=== PATIENT | male | born 1940 | race Caucasian/White ===

== ENCOUNTER 2017-04-18 13:39 | Emergency (ER) | payer OTHER ==
[2017-04-18 13:49] VITALS: TEMP 97.7; O2SAT 93
[2017-04-18] MEDS ORDERED: LET GEL TOPICAL 1 EA SYR TP ONE (14:00)
--- NOTE | 2017-04-18 14:11 | EDPHY ---
H & P Smoking Status: Never smoked Time Seen by Provider: 04/18/17 13:57 HPI/ROS: CHIEF COMPLAINT: Right eyebrow laceration HISTORY OF PRESENT ILLNESS: 77-year-old male presents to the emergency department by private vehicle with a laceration to his right eyebrow. The patient states that he was at home and was using a sledgehammer to cut a piece of wood in half and the end of piece of wood came up and hit him in the right eyebrow. He did not lose consciousness. He has no headache. The incident happened about 2 hours prior to arrival. He states the laceration blood quite a bit and EMS advised that he go to the emergency department for the suture. He has no neck or back pain. No chest pain or difficulty breathing. He denies any presyncopal symptoms prior to the injury. Denies injury to upper lower extremities. Denies abdominal pain. No vomiting. REVIEW OF SYSTEMS: Constitutional: No fever, no chills. Eyes: No double or blurry vision. ENT: No sore throat. Respiratory: No cough, no shortness of breath. Cardiac: No chest pain. Gastrointestinal: No abdominal pain, vomiting or diarrhea. Genitourinary: No dysuria. Musculoskeletal: No neck or back pain. Skin: Eyebrow laceration. No rashes. Neurological: No headache. (Sherita Palma) Past Medical/Surgical History: COPD - oxygen at night, hypertension (Minerva,Sherita M) Social History: and lives in [place] (Minerva,Sherita M) Physical Exam: General Appearance: Alert, no distress. Mentating normally and answering questions appropriately. Eyes: Pupils equal and round. Extraocular motions are all intact. ENT: Mouth: Mucous membranes moist. Respiratory: No wheezing, rhonchi, or rales, lungs are clear to auscultation. Cardiovascular: Regular rate and rhythm. Gastrointestinal: Abdomen is soft and nontender, no masses, no rebound or guarding, bowel sounds normal. Neurological: Alert and oriented x 3, cranial nerves II through XII grossly intact Skin: 2.5 cm laceration to the right eyebrow. No active bleeding noted. Nontender to palpate over the superior or inferior orbital rims. Warm and dry, no rashes. Musculoskeletal: Nontender to palpate along the cervical, thoracic or lumbar spine. Neck is supple. Extremities: Full range of motion and no peripheral edema. Psychiatric: Patient is oriented X 3, there is no agitation. (Sherita Palma) Constitutional: Initial Vital Signs Temperature (C) 36.5 C 04/18/17 13:46 Heart Rate 85 04/18/17 13:46 Respiratory Rate 15 04/18/17 13:46 Blood Pressure 140/91 H 04/18/17 13:46 O2 Sat (%) 93 04/18/17 13:46 O2 Delivery Mode Room Air Allergies/Adverse Reactions: No Known Allergies Allergy (Unverified 10/31/11 15:01) Home Medications: Medication Instructions Recorded Allopurinol [Allopurinol 100 MG 0 mg PO 10/24/11 (*)] Furosemide [Lasix] 0 mg PO 10/24/11 Lisinopril [Zestril 2.5 mg (*)] 0 mg PO 10/24/11 POTASSIUM CHLORIDE [K-NATHALIE] 0 mg PO 10/24/11 Simvastatin [Zocor] 0 mg PO 10/24/11 Medical Decision Making Procedures: Laceration repair. Verbal consent was obtained from the patient. The 2.5 cm laceration on the right eyebrow was anesthetized using 1% lidocaine with epinephrine. The wound was irrigated with saline, draped and explored to its base with a gloved finger. There were no deep structures involved. The wound was repaired with 6 0 Prolene, 6 sutures. The wound repair was simple. The procedure was performed by myself. (Sherita Palma) ED Course/Re-evaluation: 77-year-old male presents to the emergency department with right eyebrow laceration. I discussed the pros and cons of CT imaging of his brain including radiation exposure the patient declined. I feel the patient has a capacity to make this decision. I encouraged him to return to the emergency department if he developed headache, vomiting, altered mental status, or if he felt worse in any way. He was comfortable with this plan. Patient's laceration was repaired. Patient was given closed-head injury precautions. (Sherita Palma) Differential Diagnosis: Head injury including but not limited to concussion, skull fracture, intraparenchymal contusion, subarachnoid, subdural and epidural hematoma. (Sherita Palma) Departure - Departure Disposition: Home, Routine, Self-Care Clinical Impression: Laceration of right eyebrow Qualifiers: Encounter type: initial encounter Qualified Code(s): S01.111A - Laceration without foreign body of right eyelid and periocular area, initial encounter Condition: Good Instructions: Care For Your Stitches (ED), Laceration (ED), Acute Wounds (ED) Additional Instructions: Wound Care Follow-Up: Removal of sutures in 5-7 days. Suture removal is complimentary in uncomplicated cases. Infection or abnormal findings would require reevaluation by the MD. In that case, you may be billed. Return to the emergency department if you developed a headache, vomiting, altered mental status, or if you feel worse in any way. Referrals: Speedy Mesa MD [Primary Care Provider] - As per Instructions
[2017-04-18 14:59] VITALS: BP 107/83; PULSE 79; RESP 18
== END 2017-04-18 14:59 | disposition home or self-care (01) ==
PROC: 0HQ1XZZ Repair Face Skin, External Approach (ICD-10-PCS; principal; 2017-04-18)
DX: S01.111A Laceration without foreign body of right eyelid and periocular area, initial encounter (principal); I10 Essential (primary) hypertension; J44.9 Chronic obstructive pulmonary disease, unspecified; W22.8XXA Striking against or struck by other objects, initial encounter; Y92.009 Unspecified place in unspecified non-institutional (private) residence as the place of occurrence of the external cause; Y93.89 Activity, other specified

== ENCOUNTER → 2017-07-11 | Outpatient (CLI) | payer OTHER | LOC: BMCIMAGING 11:31 | PROVIDERS: ATTEND Podiatrist Foot & Ankle Surgery | DX: S92.352A Displaced fracture of fifth metatarsal bone, left foot, initial encounter for closed fracture (principal) ==

== ENCOUNTER → 2017-08-03 | Outpatient (CLI) | payer OTHER | LOC: BMCIMAGING 11:38 | PROVIDERS: ATTEND Podiatrist Foot & Ankle Surgery | DX: S92.352D Displaced fracture of fifth metatarsal bone, left foot, subsequent encounter for fracture with routine healing (principal) ==

== ENCOUNTER → 2017-08-31 | Outpatient (CLI) | payer OTHER | LOC: BMCIMAGING 10:20 | PROVIDERS: ATTEND Podiatrist Foot & Ankle Surgery | DX: S92.352D Displaced fracture of fifth metatarsal bone, left foot, subsequent encounter for fracture with routine healing (principal); M71.22 Synovial cyst of popliteal space [Baker], left knee; M20.12 Hallux valgus (acquired), left foot; M21.42 Flat foot [pes planus] (acquired), left foot; M20.42 Other hammer toe(s) (acquired), left foot; M19.072 Primary osteoarthritis, left ankle and foot; C85.90 Non-Hodgkin lymphoma, unspecified, unspecified site ==

== ENCOUNTER → 2018-09-20 | Outpatient (CLI) | payer OTHER | LOC: BMCIMAGING 14:35 | PROVIDERS: ATTEND Podiatrist Foot & Ankle Surgery | DX: M79.89 Other specified soft tissue disorders (principal); M19.071 Primary osteoarthritis, right ankle and foot; M21.41 Flat foot [pes planus] (acquired), right foot ==